=== PATIENT | male | born 1965 | race Caucasian/White ===

== ENCOUNTER 2020-12-10 12:12 | Inpatient (IN) ==
[2020-12-10] MEDS: 0.9 % Sodium Chloride 1,000 ML IVC SCH ×2 (13:31→18:15)
[2020-12-10 13:39] LABS: Basophils % 0.1 %; Hematocrit 36.9 % (37.5-50.1); Hemoglobin 12.2 g/dL (12.9-16.9); Immature Granulocytes % 0.8 % (0-4); Lymphocytes # 1.2 K/mcL (0.6-4.6); Lymphocytes % 16.4 %; Mean Corpuscular HGB Conc 33.1 g/dL (31.6-35.5); Mean Corpuscular Volume 93.7 fL (83.0-100.0); Mean Platelet Volume 9.3 fL (9.4-12.4); Monocytes # 0.4 K/mcL (0.0-1.3); Monocytes % 5.1 %; Neutrophils # 5.8 K/mcL (1.6-8.9); Platelet Count 221 K/mcL (140-400); Red Blood Count 3.94 M/mcL (4.19-5.50); Red Cell Distribution Width 12.6 % (11.5-14.5); Segmented Neutrophils % 77.6 %; White Blood Count 7.5 K/mcL (4.3-11.1)
[2020-12-10 13:45] LABS: INR 1.3; Prothrombin Time 14.4 Seconds (9.4-12.1)
[2020-12-10 13:48] LABS: Activated Partial Thrombo Time 34.3 Seconds (26.0-36.0)
[2020-12-10 13:51] LABS: VBG HCO3 25 mEq/L (21-27); VBG PCO2 38 mmHg (41-51); VBG PH 7.43 pH Units (7.32-7.42); VBG PO2 31 mmHg (25-50)
[2020-12-10 13:56] LABS: Alanine Aminotransferase 44 Units/L (7-52); Albumin 3.1 g/dL (3.5-5.7); Albumin/Globulin Ratio 0.9 (1.1-2.2); Alkaline Phosphatase 95 Units/L (34-104); Aspartate Amino Transferase 48 Units/L (13-39); BUN/Creatinine Ratio 23 (6-26); Bilirubin,Direct 0.7 mg/dL (0.0-0.2); Bilirubin,Indirect 0.9 mg/dL (0.0-1.0); Bilirubin,Total 1.6 mg/dL (0.3-1.0); Blood Urea Nitrogen 22 mg/dL (6-20); Calcium 8.3 mg/dL (8.6-10.3); Carbon Dioxide 27 mEq/L (23-29); Chloride 99 mEq/L (98-107); Globulin 3.3 g/dL (2.4-3.5); Glucose 298 mg/dL (70-105); Osmolality,Calculated 294 (280-300); Potassium 3.6 mEq/L (3.5-5.1); Sodium 135 mEq/L (136-145); Total Protein 6.4 g/dL (6.4-8.9); eGFR For African Americans > 60 (> 60); eGFR For Non-African Americans > 60 (> 60)
[2020-12-10 14:00] LABS: Troponin I < 0.03 ng/mL (< 0.04)
[2020-12-10] MEDS: levoFLOXacin 750 MG/150 ML 750 MG/150 ML BAG IVPB SCH (15:46)
[2020-12-10] MEDS ORDERED: Dextrose Gel 15 GM/37.5 ML TUBE PO PRN ×2 (17:00)
[2020-12-10] MEDS ORDERED: D5% in Water 1,000 ML IVC PRN (17:00)
[2020-12-10] MEDS ORDERED: *HR* Dextrose 50 % in Water (Vial) 50 ML VIAL IVP PRN (17:00)
[2020-12-10 17:04] LABS: Anisocytosis 1+ (Not Present); Platelet Estimate Normal (Normal); Poikilocytosis 1+ (Not Present)
[2020-12-10] MEDS: Acetaminophen 325 MG TABLET PO PRN (18:21)
[2020-12-10] MEDS ORDERED: Insulin LISPRO 300 UNITS/3 ML VIAL SUBQ SCH (21:00)
[2020-12-10] MEDS: Nystatin POWDER 30 GM BOTTLE TP SCH (21:13)
[2020-12-11] MEDS: *HR* Enoxaparin 40 MG/0.4 ML SYRINGE SQ SCH (04:32)
[2020-12-11] MEDS: Acetaminophen 325 MG TABLET PO PRN ×3 (04:32→20:57)
[2020-12-11] MEDS: Multivit/Ca/Min/Fe/FA 1 TAB TABLET PO SCH (09:56)
[2020-12-11] MEDS: lisinopriL 20 MG TABLET PO SCH (09:56)
[2020-12-11] MEDS: Famotidine 20 MG TABLET PO SCH (09:57)
[2020-12-11] MEDS: *HR* Pioglitazone 30 MG TABLET PO SCH (09:57)
[2020-12-11] MEDS: Insulin LISPRO 300 UNITS/3 ML VIAL SUBQ SCH ×4 (09:58→20:55)
[2020-12-11] MEDS: levoFLOXacin 750 MG/150 ML 750 MG/150 ML BAG IVPB SCH (09:59)
[2020-12-11 13:26] LABS: Basophils % 0.1 %; Hematocrit 37.9 % (37.5-50.1); Hemoglobin 12.6 g/dL (12.9-16.9); Immature Granulocytes % 0.6 % (0-4); Lymphocytes # 0.6 K/mcL (0.6-4.6); Mean Corpuscular HGB Conc 33.2 g/dL (31.6-35.5); Mean Corpuscular Hemoglobin 30.6 pg (28.0-33.3); Mean Platelet Volume 9.6 fL (9.4-12.4); Monocytes # 0.4 K/mcL (0.0-1.3); Monocytes % 3.9 %; Platelet Count 237 K/mcL (140-400); Red Blood Count 4.12 M/mcL (4.19-5.50); Red Cell Distribution Width 12.3 % (11.5-14.5); Segmented Neutrophils % 88.4 %; White Blood Count 9.1 K/mcL (4.3-11.1)
[2020-12-11 13:43] LABS: BUN/Creatinine Ratio 26 (6-26); Blood Urea Nitrogen 21 mg/dL (6-20); Calcium 7.9 mg/dL (8.6-10.3); Carbon Dioxide 25 mEq/L (23-29); Chloride 101 mEq/L (98-107); Glucose 341 mg/dL (70-105); Magnesium 2.3 mg/dL (1.6-2.6); Osmolality,Calculated 296 (280-300); Potassium 3.4 mEq/L (3.5-5.1); Sodium 135 mEq/L (136-145); eGFR For African Americans > 60 (> 60); eGFR For Non-African Americans > 60 (> 60)
[2020-12-11 15:47] LABS: Alanine Aminotransferase 57 Units/L (7-52); Albumin 2.9 g/dL (3.5-5.7); Albumin/Globulin Ratio 0.9 (1.1-2.2); Alkaline Phosphatase 95 Units/L (34-104); Aspartate Amino Transferase 61 Units/L (13-39); Bilirubin,Direct 0.5 mg/dL (0.0-0.2); Bilirubin,Indirect 0.5 mg/dL (0.0-1.0); Globulin 3.2 g/dL (2.4-3.5); Total Protein 6.1 g/dL (6.4-8.9)
[2020-12-11] MEDS: Nystatin POWDER 30 GM BOTTLE TP SCH ×2 (21:08→22:13)
[2020-12-11 23:49] LABS: C-Reactive Protein 158 mg/L (Less than 10)
[2020-12-12] MEDS: *HR* Enoxaparin 40 MG/0.4 ML SYRINGE SQ SCH (04:13)
[2020-12-12] MEDS: Insulin LISPRO 300 UNITS/3 ML VIAL SUBQ SCH ×4 (08:15→21:32)
[2020-12-12] MEDS: Acetaminophen 325 MG TABLET PO PRN ×2 (08:16→16:27)
[2020-12-12] MEDS: lisinopriL 20 MG TABLET PO SCH (08:16)
[2020-12-12] MEDS: Multivit/Ca/Min/Fe/FA 1 TAB TABLET PO SCH (08:16)
[2020-12-12] MEDS: Nystatin POWDER 30 GM BOTTLE TP SCH ×2 (08:17→21:33)
[2020-12-12] MEDS: levoFLOXacin 750 MG/150 ML 750 MG/150 ML BAG IVPB SCH (08:17)
[2020-12-12] MEDS: *HR* Pioglitazone 30 MG TABLET PO SCH (08:17)
[2020-12-12] MEDS: Famotidine 20 MG TABLET PO SCH (08:17)
[2020-12-12] MEDS: Insulin DETEMIR 100 UNIT/ML X5UNITS SUBQ SCH (21:35)
[2020-12-13] MEDS: Acetaminophen 325 MG TABLET PO PRN ×2 (04:29→21:58)
[2020-12-13] MEDS: *HR* Enoxaparin 40 MG/0.4 ML SYRINGE SQ SCH (04:29)
[2020-12-13 04:47] LABS: Hematocrit 37.6 % (37.5-50.1); Hemoglobin 12.6 g/dL (12.9-16.9); Mean Corpuscular HGB Conc 33.5 g/dL (31.6-35.5); Mean Corpuscular Hemoglobin 30.6 pg (28.0-33.3); Mean Corpuscular Volume 91.3 fL (83.0-100.0); Mean Platelet Volume 9.4 fL (9.4-12.4); Platelet Count 257 K/mcL (140-400); Red Blood Count 4.12 M/mcL (4.19-5.50); Red Cell Distribution Width 12.1 % (11.5-14.5); White Blood Count 7.5 K/mcL (4.3-11.1)
[2020-12-13 05:03] LABS: BUN/Creatinine Ratio 27 (6-26); Blood Urea Nitrogen 19 mg/dL (6-20); Carbon Dioxide 25 mEq/L (23-29); Chloride 104 mEq/L (98-107); Glucose 183 mg/dL (70-105); Osmolality,Calculated 295 (280-300); Potassium 3.2 mEq/L (3.5-5.1); Sodium 139 mEq/L (136-145); eGFR For African Americans > 60 (> 60); eGFR For Non-African Americans > 60 (> 60)
[2020-12-13] MEDS ORDERED: Isovue-370 500 ML BOTTLE IVP ONE (05:56)
[2020-12-13] MEDS: Ondansetron 4 MG/2 ML VIAL IVP PRN ×2 (06:04→23:10)
[2020-12-13] MEDS: Insulin LISPRO 300 UNITS/3 ML VIAL SUBQ SCH ×4 (08:54→22:00)
[2020-12-13] MEDS: levoFLOXacin 750 MG/150 ML 750 MG/150 ML BAG IVPB SCH (08:55)
[2020-12-13] MEDS: lisinopriL 20 MG TABLET PO SCH (08:58)
[2020-12-13] MEDS: *HR* Pioglitazone 30 MG TABLET PO SCH (08:58)
[2020-12-13] MEDS: Famotidine 20 MG TABLET PO SCH (08:58)
[2020-12-13] MEDS: Multivit/Ca/Min/Fe/FA 1 TAB TABLET PO SCH (08:58)
[2020-12-13] MEDS: Cyanocobalamin (B-12) 1,000 MCG TABLET PO SCH (08:58)
[2020-12-13] MEDS: Nystatin POWDER 30 GM BOTTLE TP SCH ×2 (10:28→21:57)
[2020-12-13] MEDS ORDERED: *HR* Promethazine 25 MG/ML VIAL IM ONE (10:42)
[2020-12-13] MEDS: Insulin DETEMIR 100 UNIT/ML X5UNITS SUBQ SCH ×2 (12:28→22:00)
[2020-12-13 13:19] LABS: C-Reactive Protein 46 mg/L (Less than 10)
[2020-12-13] MEDS ORDERED: *HR* LORazepam 0.5 MG TABLET PO PRN (15:17)
[2020-12-13] MEDS: *HR* LORazepam 0.5 MG TABLET PO PRN (23:10)
[2020-12-14] MEDS: *HR* Enoxaparin 40 MG/0.4 ML SYRINGE SQ SCH (05:20)
[2020-12-14 07:58] LABS: Alanine Aminotransferase 38 Units/L (7-52); Albumin 2.7 g/dL (3.5-5.7); Albumin/Globulin Ratio 0.7 (1.1-2.2); Alkaline Phosphatase 82 Units/L (34-104); Aspartate Amino Transferase 25 Units/L (13-39); BUN/Creatinine Ratio 28 (6-26); Bilirubin,Total 0.7 mg/dL (0.3-1.0); Blood Urea Nitrogen 19 mg/dL (6-20); Calcium 8.2 mg/dL (8.6-10.3); Carbon Dioxide 26 mEq/L (23-29); Chloride 104 mEq/L (98-107); Globulin 3.8 g/dL (2.4-3.5); Glucose 258 mg/dL (70-105); Osmolality,Calculated 297 (280-300); Potassium 3.8 mEq/L (3.5-5.1); Sodium 138 mEq/L (136-145); Total Protein 6.5 g/dL (6.4-8.9); eGFR For African Americans > 60 (> 60); eGFR For Non-African Americans > 60 (> 60)
[2020-12-14 08:22] LABS: Hematocrit 41.1 % (37.5-50.1); Hemoglobin 13.6 g/dL (12.9-16.9); Mean Corpuscular HGB Conc 33.1 g/dL (31.6-35.5); Mean Corpuscular Hemoglobin 30.8 pg (28.0-33.3); Mean Platelet Volume 9.4 fL (9.4-12.4); Platelet Count 297 K/mcL (140-400); Red Blood Count 4.42 M/mcL (4.19-5.50); Red Cell Distribution Width 12.4 % (11.5-14.5)
[2020-12-14] MEDS: levoFLOXacin 750 MG/150 ML 750 MG/150 ML BAG IVPB SCH ×2 (09:23→10:52)
[2020-12-14] MEDS: Insulin LISPRO 300 UNITS/3 ML VIAL SUBQ SCH ×4 (09:24→23:05)
[2020-12-14] MEDS: Acetaminophen 325 MG TABLET PO PRN ×2 (09:27→23:03)
[2020-12-14] MEDS: Insulin DETEMIR 100 UNIT/ML X5UNITS SUBQ SCH ×2 (09:27→23:05)
[2020-12-14] MEDS: *HR* Pioglitazone 30 MG TABLET PO SCH (09:28)
[2020-12-14] MEDS: Multivit/Ca/Min/Fe/FA 1 TAB TABLET PO SCH (09:28)
[2020-12-14] MEDS: lisinopriL 20 MG TABLET PO SCH (09:28)
[2020-12-14] MEDS: Ondansetron 4 MG/2 ML VIAL IVP PRN (09:28)
[2020-12-14] MEDS: Famotidine 20 MG TABLET PO SCH (09:29)
[2020-12-14] MEDS: Nystatin POWDER 30 GM BOTTLE TP SCH ×2 (09:29→23:02)
[2020-12-14] MEDS: Cyanocobalamin (B-12) 1,000 MCG TABLET PO SCH (09:29)
[2020-12-14] MEDS: levoFLOXacin 500 MG TABLET PO SCH (11:59)
[2020-12-14] MEDS: dexAMETHasone 4 MG TABLET PO SCH (11:59)
[2020-12-14 13:52] LABS: Ferritin 375 ng/mL (20-250)
[2020-12-14 15:40] LABS: C-Reactive Protein 90 mg/L (Less than 10)
[2020-12-15] MEDS ORDERED: Bisacodyl 10 MG RECTAL SUPPOSITORY RC ONE (06:00)
[2020-12-15] MEDS: *HR* Enoxaparin 40 MG/0.4 ML SYRINGE SQ SCH (06:31)
[2020-12-15] MEDS: Insulin LISPRO 300 UNITS/3 ML VIAL SUBQ SCH ×4 (08:39→22:03)
[2020-12-15] MEDS: Insulin DETEMIR 100 UNIT/ML X5UNITS SUBQ SCH ×2 (08:40→22:46)
[2020-12-15] MEDS: *HR* Pioglitazone 30 MG TABLET PO SCH (08:41)
[2020-12-15] MEDS: Multivit/Ca/Min/Fe/FA 1 TAB TABLET PO SCH (08:41)
[2020-12-15] MEDS: lisinopriL 20 MG TABLET PO SCH (08:41)
[2020-12-15] MEDS: levoFLOXacin 500 MG TABLET PO SCH (08:41)
[2020-12-15] MEDS: Nystatin POWDER 30 GM BOTTLE TP SCH ×2 (08:41→22:46)
[2020-12-15] MEDS: Cyanocobalamin (B-12) 1,000 MCG TABLET PO SCH (08:42)
[2020-12-15] MEDS: dexAMETHasone 4 MG TABLET PO SCH (08:42)
[2020-12-15] MEDS: Famotidine 20 MG TABLET PO SCH (08:42)
[2020-12-15] MEDS: Acetaminophen 325 MG TABLET PO PRN ×2 (11:47→17:16)
[2020-12-15] MEDS: *HR* LORazepam 0.5 MG TABLET PO PRN (22:46)
[2020-12-16] MEDS: *HR* Enoxaparin 40 MG/0.4 ML SYRINGE SQ SCH (06:40)
[2020-12-16] MEDS: *HR* LORazepam 0.5 MG TABLET PO PRN (06:53)
[2020-12-16 08:04] VITALS: BP 112/64; PULSE 90; TEMP 98.6
[2020-12-16 09:09] LABS: Hematocrit 39.8 % (37.5-50.1); Mean Corpuscular HGB Conc 32.7 g/dL (31.6-35.5); Mean Corpuscular Hemoglobin 30.8 pg (28.0-33.3); Mean Corpuscular Volume 94.3 fL (83.0-100.0); Mean Platelet Volume 9.3 fL (9.4-12.4); Platelet Count 333 K/mcL (140-400); Red Blood Count 4.22 M/mcL (4.19-5.50); Red Cell Distribution Width 12.5 % (11.5-14.5); White Blood Count 8.3 K/mcL (4.3-11.1)
[2020-12-16 09:56] LABS: Alanine Aminotransferase 36 Units/L (7-52); Albumin 2.7 g/dL (3.5-5.7); Albumin/Globulin Ratio 0.7 (1.1-2.2); Alkaline Phosphatase 72 Units/L (34-104); Aspartate Amino Transferase 29 Units/L (13-39); Bilirubin,Total 0.8 mg/dL (0.3-1.0); Blood Urea Nitrogen 19 mg/dL (6-20); Calcium 7.7 mg/dL (8.6-10.3); Carbon Dioxide 27 mEq/L (23-29); Chloride 104 mEq/L (98-107); Globulin 3.8 g/dL (2.4-3.5); Glucose 126 mg/dL (70-105); Osmolality,Calculated 290 (280-300); Potassium 3.6 mEq/L (3.5-5.1); Sodium 138 mEq/L (136-145); Total Protein 6.5 g/dL (6.4-8.9)
[2020-12-16 09:57] LABS: BUN/Creatinine Ratio 31 (6-26); eGFR For African Americans > 60 (> 60); eGFR For Non-African Americans > 60 (> 60)
[2020-12-16] MEDS: dexAMETHasone 4 MG TABLET PO SCH (09:57)
[2020-12-16] MEDS: *HR* Pioglitazone 30 MG TABLET PO SCH (09:59)
[2020-12-16] MEDS: Cyanocobalamin (B-12) 1,000 MCG TABLET PO SCH (09:59)
[2020-12-16] MEDS: Multivit/Ca/Min/Fe/FA 1 TAB TABLET PO SCH (09:59)
[2020-12-16] MEDS: Famotidine 20 MG TABLET PO SCH (09:59)
[2020-12-16] MEDS: lisinopriL 20 MG TABLET PO SCH (09:59)
[2020-12-16] MEDS: Nystatin POWDER 30 GM BOTTLE TP SCH (10:00)
[2020-12-16] MEDS: Insulin LISPRO 300 UNITS/3 ML VIAL SUBQ SCH ×2 (10:00→12:36)
[2020-12-16] MEDS: levoFLOXacin 500 MG TABLET PO SCH (10:00)
[2020-12-16 10:08] VITALS: RESP 22; O2SAT 94
[2020-12-16] MEDS: Insulin DETEMIR 100 UNIT/ML X5UNITS SUBQ SCH (12:36)
[2020-12-16 13:15] LABS: C-Reactive Protein 31 mg/L (Less than 10)
[2020-12-16 13:30] LABS: Ferritin 359 ng/mL (20-250)
[2020-12-16] MEDS: Acetaminophen 325 MG TABLET PO PRN (15:22)
[2020-12-16] MEDS ORDERED: Bisacodyl 10 MG RECTAL SUPPOSITORY RC ONE (19:28)
== END 2020-12-16 16:15 | disposition home health service (06) | DRG 137 ==
LOC: EMEROOGRE 12:12 → INPGRE 14:23
PROVIDERS: ADMIT Family Medicine; ATTEND Family Medicine